=== PATIENT | male | born 1985 | race American Indian/Alaskan Native ===

== ENCOUNTER 2018-05-31 12:59 | Outpatient (CLI) | payer BC | END 2018-05-31 13:00 | disposition home or self-care (01) | LOC: RAD 12:59 ==

== ENCOUNTER 2018-06-16 13:04 | Outpatient (CLI) | payer BC | END 2018-06-16 13:05 | disposition home or self-care (01) | LOC: RAD 13:04 ==

== ENCOUNTER 2018-07-01 12:58 | Outpatient (CLI) | payer BC | END 2018-07-01 12:59 | disposition home or self-care (01) | LOC: RAD 12:58 ==

== ENCOUNTER 2018-08-17 17:16 | Emergency (ER) | payer BC ==
[2018-08-17 17:17] VITALS: BMI 27.6
[2018-08-17 18:22] VITALS: RESP 18
[2018-08-17] MEDS: Lidocaine 5% Patch TD STA (18:52)
--- NOTE | 2018-08-17 19:56 | ED PDOC ---
Arrival/HPI - General Chief Complaint: Back Pain Time Seen by Provider: 08/17/18 17:32 Historian: Patient - History of Present Illness Narrative History of Present Illness (Text): 20:03 33 y/o male with PMH of chronic back pain and herniated disks presents to the ED c/o right sided back pain x 2 days. Pain is sharp and radiates into right hip and down into right buttock/leg. States he has been doing a lot of stretches and exercises at home recently, as recommended by physical therapy. Has a physical therapy session scheduled for tomorrow. Pt had a Lumbar Spine MRI on 07/01/18 that showed herniated disc L5-S1 and severe right sided neural foraminal stenosis. Denies saddle anesthesia, bowel/bladder incontinence, extremity numbness/weakness/paresthesias, abdominal pain, rectal pain, testicular pain, nausea, vomiting, fever, chills, chest pain, SOB, headache, dizziness, or any other associated symptoms. PMD: Past Medical History - Provider Review Nursing Documentation Reviewed: Yes - Infectious Disease Hx of Infectious Diseases: None - Cardiac Hx Cardiac Disorders: No - Musculoskeletal/Rheumatological Hx Back Pain: Yes Hx Herniated Disk: Yes - Psychiatric Hx Substance Use: No - Anesthesia Hx Anesthesia: No Hx Anesthesia Reactions: No Hx Malignant Hyperthermia: No Family/Social History - Physician Review Nursing Documentation Reviewed: Yes Family/Social History: No Known Family HX Smoking Status: Current Some Days Smoker Hx Alcohol Use: No Hx Substance Use: No Allergies/Home Meds Allergies/Adverse Reactions: Allergies No Known Allergies Allergy (Verified 08/18/18 05:03) Review of Systems - Review of Systems Constitutional: Normal. absent: Fevers Respiratory: Normal. absent: SOB Cardiovascular: Normal. absent: Chest Pain Gastrointestinal: Normal. absent: Abdominal Pain, Stool Changes, Nausea, Vomiting, Other (no bowel/bladder incontinence) Genitourinary Male: Normal Musculoskeletal: Back Pain, Other (right leg pain) Skin: Normal. absent: Rash Neurological: Normal. absent: Headache, Dizziness, Other (no paresthesias, numbness, weakness) Physical Exam Vital Signs Temp Pulse Resp BP Pulse Ox 08/17/18 18:00 98 F 88 18 151/89 H 99 Temperature: Afebrile Blood Pressure: Hypertensive Pulse: Regular Respiratory Rate: Normal Appearance: Positive for: Well-Appearing, Non-Toxic, Comfortable Pain Distress: None Mental Status: Positive for: Alert and Oriented X 3 - Systems Exam Head: Present: Atraumatic, Normocephalic Pupils: Present: PERRL Extroacular Muscles: Present: EOMI Conjunctiva: Present: Normal Mouth: Present: Moist Mucous Membranes Neck: Present: Normal Range of Motion. No: Meningeal Signs Respiratory/Chest: Present: Clear to Auscultation, Good Air Exchange. No: Respiratory Distress, Accessory Muscle Use Cardiovascular: Present: Regular Rate and Rhythm, Normal S1, S2, Peripheal Pulses Present Abdomen: Present: Normal Bowel Sounds. No: Tenderness, Distention, Peritoneal Signs Back: Present: Normal Inspection, Paraspinal Tenderness (right lumbar), Pain with Leg Raise (right at 30 degrees). No: Midline Tenderness Upper Extremity: Present: Normal Inspection, Normal ROM. No: Cyanosis, Edema Lower Extremity: Present: Normal Inspection, NORMAL PULSES, Normal ROM, Neurovascularly Intact, Capillary Refill < 2 s. No: Edema, CALF TENDERNESS, Deformity, Temperature Abnormalties Neurological: Present: GCS=15, CN II-XII Intact, Speech Normal, Motor Func Grossly Intact, Normal Sensory Function Skin: Present: Warm, Dry, Normal Color. No: Rashes Psychiatric: Present: Alert, Oriented x 3, Normal Insight, Normal Concentration, Normal Affect, Normal Mood Medical Decision Making ED Course and Treatment: Initial Plan: * Toradol, Valium, Lidoderm Patch 19:54 Offered patient hip and SI joint XR, patient refuses. States he recently had MRI. On re-evaluation, patient reports improvement in pain but is still having difficulty ambulating. Percocet ordered. 21:09 Pt continues with mild pain but ambulating without difficulty. Offered admission for pain control but pt is requesting discharge home, states he would like to attempt outpatient management. Advised orthopedic and PMD followup. Dr. Murillo updated with disposition, states pt can followup in his office tomorrow. Encouraged return to ED for worsening symptoms. Diagnostic testing results and plan of care discussed with patient. Strict instructions given regarding prescription use, importance of followup, and signs/symptoms to return to ER including worsening pain, extremity numbness/weakness/paresthesias, saddle anesthesia, bowel/bladder incontinence, or any other new/worsening symptoms. Pt verbalized understanding of discussion. Patient is A&Ox3, ambulating with steady gait, with vital signs stable for discharge. - Medication Orders Current Medication Orders: Discontinued Medications Diazepam (Valium) 5 mg PO ONCE ONE; Protocol Stop: 08/17/18 18:10 Last Admin: 08/17/18 18:52 Dose: 5 mg Ketorolac Tromethamine (Toradol) 60 mg IM STAT STA Stop: 08/17/18 18:10 Last Admin: 08/17/18 18:52 Dose: 60 mg MAR Pain Assessment Document 08/17/18 18:52 [facility] (Rec: 08/17/18 18:52 [id number] Pain Reassessment Is this a pain reassessment? No Sleep Is patient sleeping during reassessment? No Presence of Pain Presence of Pain Yes IM Administration Charges Document 08/17/18 18:52 [facility] (Rec: 08/17/18 18:52 [id number] Charges for Administration # of IM Administrations 1 Lidocaine (Lidoderm) 1 ea TD DAILY LIANET Lidocaine (Lidoderm) 1 ea TD STAT STA Stop: 08/17/18 18:35 Last Admin: 08/17/18 18:52 Dose: 1 ea MAR Transdermal Patch Site Document 08/17/18 18:52 [facility] (Rec: 08/17/18 18:52 [id number] Transdermal Patch Site Transdermal Patch Site Left Lower Back Disposition/Present on Arrival - Present on Arrival Any Indicators Present on Arrival: No History of DVT/PE: No History of Uncontrolled Diabetes: No Urinary Catheter: No History of Decub. Ulcer: No History Surgical Site Infection Following: CABG - Mediastinitis, None - Disposition Have Diagnosis and Disposition been Completed?: Yes Diagnosis: Acute exacerbation of chronic low back pain Disposition: HOME/ ROUTINE Disposition Time: 21:10 Patient Plan: Discharge Patient Problems: Current Active Problems Problem Status Onset Lower back pain Acute Lumbar disc herniation with radiculopathy Acute Condition: IMPROVED Discharge Instructions (ExitCare): Sciatica, Low Back Pain in Adults, Sciatica Exercises Additional Instructions: Percocet every 6 hours for severe back pain Ibuprofen every 8 hours as needed for pain, take with food Flexeril nightly as needed, do not take before driving or working Followup with physical therapy tomorrow Followup with Dr. Murillo tomorrow Followup with orthopedics within 2 days Return to ER with any new/worsening symptoms Prescriptions: Cyclobenzaprine [Cyclobenzaprine HCl] 10 mg PO HS PRN #7 tab PRN Reason: Pain, Moderate (4-7) Ibuprofen [Motrin Tab] 600 mg PO Q8 PRN #30 tab PRN Reason: Pain, Moderate (4-7) oxyCODONE/Acetaminophen [Percocet 5/325 mg Tab] 1 tab PO Q6H PRN #10 tab PRN Reason: Pain, Severe (8-10) Referrals: Vicky Garner MD [Staff Provider] - Follow up with primary Yoel Murillo DO [Family Provider] - Follow up with primary Forms: [employer] (American), WORK NOTE, Opioid Discharge Information
[2018-08-17] MEDS: Oxycodone/Acetaminophen 5/325 mg Tab PO STA (20:19)
[2018-08-17 21:21] VITALS: BP 113/67; PULSE 66; TEMP 98.2; O2SAT 100
[2018-08-18] MEDS ORDERED: Lidocaine 5% Patch TD SCH (10:00)
== END 2018-08-17 21:21 | disposition home or self-care (01) ==
LOC: ED 17:16
DX: M54.5 Low back pain (principal); G89.29 Other chronic pain
CPT/HCPCS: 96372; 99282; J1885

== ENCOUNTER 2018-08-18 04:54 | Inpatient (IN) | payer BC ==
[2018-08-18 04:54] VITALS: BMI 27.6
[2018-08-18] MEDS ORDERED: Morphine 4 mg/ml ISec IM STA (05:38)
--- NOTE | 2018-08-18 05:41 | ED PDOC ---
Arrival/HPI - General Chief Complaint: Back Pain Time Seen by Provider: 08/18/18 04:54 Historian: Patient - History of Present Illness Narrative History of Present Illness (Text): 08/18/18 05:37 33 year old male, whose past medical history includes chronic back pain and herniated disks presents to the emergency department complaining of right sided back pain, for 2 days. Pain is sharp and radiates into right hip and down into right buttock/leg. Patient had a Lumbar Spine MRI on 07/01/18 that showed herniated disc L5-S1 and severe neural foramen stenosis. Patient was seen in the ER hours ago. Patient has returned stating pain is worse,unable to stand or ambulate. Denies saddle anesthesia, bowel/bladder incontinence, extremity numbness/weakness/paresthesias, abdominal pain, rectal pain, testicular pain, nausea, vomiting, fever, chills, chest pain, SOB, headache, dizziness, or any other associated symptoms. PMD: Time/Duration: Prior to Arrival Symptom Onset: Gradual Symptom Course: Unchanged Activities at Onset: Light Context: Home Past Medical History - Provider Review Nursing Documentation Reviewed: Yes - Infectious Disease Hx of Infectious Diseases: None - Cardiac Hx Cardiac Disorders: No - Musculoskeletal/Rheumatological Hx Musculoskeletal Disorders: Yes Hx Back Pain: Yes Hx Herniated Disk: Yes - Gastrointestinal Hx Gastrointestinal Disorders: No - Psychiatric Hx Substance Use: No - Anesthesia Hx Anesthesia: No Hx Anesthesia Reactions: No Hx Malignant Hyperthermia: No Family/Social History - Physician Review Nursing Documentation Reviewed: Yes Family/Social History: No Known Family HX Smoking Status: Current Some Days Smoker Hx Alcohol Use: No Hx Substance Use: No Allergies/Home Meds Allergies/Adverse Reactions: Allergies No Known Allergies Allergy (Verified 08/18/18 05:03) Review of Systems - Physician Review All systems were reviewed & negative as marked: Yes - Review of Systems Constitutional: absent: Fevers, Night Sweats Respiratory: absent: SOB, Cough Cardiovascular: absent: Chest Pain Gastrointestinal: absent: Abdominal Pain, Diarrhea, Nausea, Vomiting Musculoskeletal: Back Pain Neurological: Normal. absent: Headache, Dizziness, Focal Weakness, Other (no parathesia or saddle anesthesia) Physical Exam Vital Signs Reviewed: Yes Vital Signs Temp Pulse Resp BP Pulse Ox 08/18/18 05:02 97.7 F 74 18 127/98 H 100 Temperature: Afebrile Blood Pressure: Normal Pulse: Regular Respiratory Rate: Normal Appearance: Positive for: Well-Appearing, Non-Toxic, Comfortable Pain Distress: None Mental Status: Positive for: Alert and Oriented X 3 - Systems Exam Head: Present: Atraumatic, Normocephalic Pupils: Present: PERRL Extroacular Muscles: Present: EOMI Conjunctiva: Present: Normal Mouth: Present: Moist Mucous Membranes Neck: Present: Normal Range of Motion Respiratory/Chest: Present: Clear to Auscultation, Good Air Exchange. No: Respiratory Distress, Accessory Muscle Use Cardiovascular: Present: Regular Rate and Rhythm, Normal S1, S2. No: Murmurs Abdomen: No: Tenderness, Distention, Peritoneal Signs Back: Present: Paraspinal Tenderness, Pain with Leg Raise (severe pain with any attempt at SLR) Upper Extremity: Present: Normal Inspection. No: Cyanosis, Edema Lower Extremity: Present: Normal Inspection, Neurovascularly Intact. No: Edema Neurological: Present: GCS=15, CN II-XII Intact, Speech Normal, Motor Func Grossly Intact, Normal Sensory Function Skin: Present: Warm, Dry, Normal Color. No: Rashes Psychiatric: Present: Alert, Oriented x 3, Normal Insight, Normal Concentration Medical Decision Making ED Course and Treatment: 08/18/18 05:44 Impression: 33 year old male presents with back pain. Plan: -- Morphine -- Toradol -- Reassess and disposition Prior Visits: Notes and results from previous visits were reviewed. Progress Notes: 08/18/18 07:00 Case endorsed to /pending MRI/response to treatment/reassess/final disposition - Scribe Statement The provider has reviewed the documentation as recorded by the Emily Tripathi Provider Scribe Attestation: All medical record entries made by the Scribe were at my direction and personally dictated by me. I have reviewed the chart and agree that the record accurately reflects my personal performance of the history, physical exam, medical decision making, and the department course for this patient. I have also personally directed, reviewed, and agree with the discharge instructions and disposition. Disposition/Present on Arrival - Present on Arrival Any Indicators Present on Arrival: No History of DVT/PE: No History of Uncontrolled Diabetes: No Urinary Catheter: No History of Decub. Ulcer: No History Surgical Site Infection Following: CABG - Mediastinitis, None - Disposition Have Diagnosis and Disposition been Completed?: No Diagnosis: Lower back pain Disposition Time: 07:00 Condition: STABLE Forms: [employer] (Algerian)
[2018-08-18] MEDS ORDERED: Lidocaine 5% Patch TD ONE (06:38)
--- NOTE | 2018-08-18 07:09 | ED PDOC ---
Physical Exam - Physical Exam Narrative Physical Exam (Text): 08/18/18 07:13 Patient was seen in the emergency department yesterday by the PA and discharged home with ibuprofen Percocet and Flexeril. These have not been helping him. He is unable to ambulate. MRI is currently pending, though he just had an MRI of his lumbosacral spine last month. Arrangements will be made for admission and orthopedic consult. He has no sciatic notch tenderness on exam. 08/18/18 07:[address] Murillo who requests orthopedic consult and the patient be placed on regular observation. 08/18/18 07:50 Patient was seen and examined in the emergency department by Dr. Murillo. Vital Signs Reviewed: Yes Vital Signs Temp Pulse Resp BP Pulse Ox 08/18/18 05:02 97.7 F 74 18 127/98 H 100 Temperature: Afebrile Blood Pressure: Hypertensive Pulse: Regular Respiratory Rate: Normal Appearance: Positive for: Well-Appearing, Non-Toxic, Comfortable Pain Distress: None Mental Status: Positive for: Alert and Oriented X 3 Medical Decision Making ED Course and Treatment: 08/18/18 07:08: Case endorsed to me by Dr. Westbrook. Pending MRI, reassessment, and final disposition. - RAD Interpretation Radiology Orders: 08/18/18 06:38 SPINAL CANAL LUMBAR W/O CONT [MRI] Stat - Medication Orders Current Medication Orders: Discontinued Medications Diazepam (Valium) 5 mg PO ONCE ONE; Protocol Stop: 08/18/18 06:38 Ketorolac Tromethamine (Toradol) 60 mg IM ONCE ONE Stop: 08/18/18 05:39 Last Admin: 08/18/18 05:47 Dose: 60 mg MAR Pain Assessment Document 08/18/18 05:47 (Rec: 08/18/18 05:48 [id number]) Pain Reassessment Is this a pain reassessment? Yes Location Left, Right or Bilateral Right Upper or Lower Lower Pain Location Body Site Back Description Description Radiating IM Administration Charges Document 08/18/18 05:47 (Rec: 08/18/18 05:48 [id number]) Injection Site MAR Injection Site Left Vastus Lateralis Charges for Administration # of IM Administrations 1 Lidocaine (Lidoderm) 1 ea TD ONCE ONE Stop: 08/18/18 06:39 Morphine Sulfate (Morphine) 4 mg IM STAT STA Stop: 08/18/18 05:39 Last Admin: 08/18/18 05:48 Dose: 4 mg MAR Pain Assessment Document 08/18/18 05:48 (Rec: 08/18/18 05:48 [id number]) Pain Reassessment Is this a pain reassessment? Yes Location Left, Right or Bilateral Right Upper or Lower Lower Pain Location Body Site Back Description Description Radiating IM Administration Charges Document 08/18/18 05:48 (Rec: 08/18/18 05:48 RG [id number]) Injection Site MAR Injection Site Right Vastus Lateralis Charges for Administration # of IM Administrations 1 - Scribe Statement The provider has reviewed the documentation as recorded by the Allyssaibe Teena Chavarria Provider Scribe Attestation: All medical record entries made by the Scribe were at my direction and personally dictated by me. I have reviewed the chart and agree that the record accurately reflects my personal performance of the history, physical exam, medical decision making, and the department course for this patient. I have also personally directed, reviewed, and agree with the discharge instructions and disposition. Disposition/Present on Arrival - Present on Arrival Any Indicators Present on Arrival: No History of DVT/PE: No History of Uncontrolled Diabetes: No Urinary Catheter: No History of Decub. Ulcer: No History Surgical Site Infection Following: CABG - Mediastinitis, None - Disposition Have Diagnosis and Disposition been Completed?: Yes Diagnosis: Lower back pain Disposition: HOSPITALIZED Disposition Time: 07:21 Patient Plan: Observation Patient Problems: Current Active Problems Problem Status Onset Lower back pain Acute Condition: GOOD
[2018-08-18 09:47] LABS: ALB/GLOB RATIO 1.3 (1.1-1.8); ALBUMIN 4.2 g/dL (3.0-4.8); ALT/SGPT 36 U/L (7-56); AST/SGOT 31 U/L (17-59); BLOOD UREA NITROGEN 15 mg/dL (7-21); CALCIUM 9.1 mg/dL (8.4-10.5); GFR NON-AFRICAN AMERICAN > 60
[2018-08-18] MEDS: Morphine 2 mg/ml ISec IVP PRN ×3 (09:59→20:09)
[2018-08-18] MEDS: Lidocaine 5% Patch TD SCH (10:00)
--- NOTE | 2018-08-18 12:47 | HP ---
DATE OF EXAM: 08/18/2018 HISTORY OF PRESENT ILLNESS: I have known him in the office. He does work with a very weird position and I think he had a very bad low back pain on the outpatient MRI and he could not go back to work. He has been getting physical therapy and multiple pain medications on the outpatient. He comes in last night with severe back pain. He could not stand or walk. He was given some medications and sent home. It lasted maybe 4 to 6 hours, he is back in the ER. He cannot walk, he cannot stand. He has excruciating back pain. He is a 33-year-old man which he is now having a chronic back with herniated discs, a right-sided back pain for 2 days that radiates into his hip and down to his buttocks. On the 07/01/2018, an MRI showed herniated disc at L5-S1, severe neuroforaminal stenosis. He was in the ER a couple of times over the past 24 hours and now he is being kept in a very vigorous work job issue with back pain from it, herniated disc. FAMILY HISTORY: No known family history. SOCIAL HISTORY: An occasional smoker. No alcohol. No drugs. ALLERGIES: NO KNOWN DRUG ALLERGIES. MEDICATIONS: He was on Naprosyn and Flexeril patches. REVIEW OF SYSTEMS: He was in a lot of pain. No fever. No night sweats. No shortness of breath or cough. No chest pain or palpitations. No abdominal pain, nausea, vomiting, constipation, or diarrhea. Severe low back pain into his leg, he cannot walk at this time. No headache. No dizziness. No focal headache. PHYSICAL EXAMINATION GENERAL: He is well-appearing, comfortable now that he is medicated but before he was not doing well and in pain. Alert and oriented x3. VITAL SIGNS: He has a 97.7 temperature, 74 pulse, 127/98, it came down to 138/78 blood pressure, 15 respiratory rate and 96% O2 sat. HEENT: Head; atraumatic, normocephalic. Extraocular muscles are intact. Pupils reactive to light and accommodation. Throat is moist. NECK: Supple. HEART: Regular rate. Normal S1, S2. LUNGS: Decreased breath sounds but clear to auscultation. No wheezes, no rhonchi, no rales. ABDOMEN: Soft, nontender. Positive bowel sounds. No guarding, no rebound or CVA tenderness. BACK: Paraspinal tenderness pain with leg raise, severe with any attempted single leg raising. No edema. SKIN: Warm and dry that I could tell. No ulcers or rashes appreciated. NEUROLOGIC: Cranial nerves II through XII grossly intact. Speech is normal. Alert and oriented x3. ASSESSMENT AND PLAN: He could not walk to get out of the emergency room. He is here in the hospital for evaluation. I have called in Orthopedic and Physical Therapy. I have put him on pain medications, the patch. We will see what Orthopedics have to do to help the patient. He might need to have an epidural, we will see. I will call Neurology in too to get their opinion and hopefully he will not be in longer than 24 hours in observation for a severe low back pain, he cannot walk. Yoel Murillo DO
--- NOTE | 2018-08-18 12:52 | MRI ---
Date of service: 08/18/2018 PROCEDURE: MR LUMBAR SPINE WITHOUT CONTRAST HISTORY: sever pain/inability to ambulate COMPARISON: 07/01/2018. TECHNIQUE: Multiecho multiplanar sequences were performed through the lumbar spine without the use of intravenous contrast. FINDINGS: There is normal alignment of the lumbar vertebral bodies. There is straightening of the sella bar spine with loss of lumbar lordosis. Vertebral height is normal. There is no acute fracture, spondylolysis or spondylolisthesis. Bone marrow signal is within normal limits. The conus medullaris terminates at a normal level and the nerve roots of cauda equina are normal. The paraspinous soft tissues are normal. Imaged portion of the retroperitoneum is within normal limits. T12-L1: No disc herniation, spinal canal stenosis or neural foraminal narrowing. L1-2: No disc herniation, spinal canal stenosis or neural foraminal narrowing. L2-3: No disc herniation, spinal canal stenosis or neural foraminal narrowing. L3-4: Mild posterior disc bulge without spinal canal stenosis or neural foraminal narrowing. Mild bilateral facet arthropathy. L4-5: Diffuse posterior disc bulge indents the ventral thecal sac without spinal canal stenosis. Mild bilateral facet arthropathy contributes to mild neural foraminal narrowing. L5-S1: There is interval worsening of right paracentral and posterolateral disc protrusion which indents the ventral thecal sac and posteriorly displaces traversing right S1 nerve. No central spinal canal stenosis. Also noted is a large right foraminal and far lateral disc protrusion which impinge on the exiting right L5 nerve root. Moderate bilateral facet arthropathy contribute to severe right and moderate left neural foraminal narrowing. OTHER FINDINGS: None. IMPRESSION: Interval mild progression of degenerative disc disease at L5-S1 with a large right paracentral and posterolateral disc protrusion which indents the ventral thecal sac and posteriorly displaces the traversing right S1 nerve root. Also noted is large right foraminal and far lateral disc protrusion which impinge on the exiting right L5 nerve root. No central spinal canal stenosis. Moderate bilateral facet arthropathy contribute to severe right and moderate left neural foraminal narrowing.
--- NOTE | 2018-08-18 14:26 | CP.PCM.CON ---
History of Present Illness - History of Present Illness History of Present Illness: Orthopedic consult: Dr. Garner Patient is a 33 y/o healthy male who presents c/o severe right sided lower back pain. The pain began approximately 4 months ago without any instance of injury or trauma. The patient presented to Dr. Murillo with these symptoms and pain gradually improved over the next two months with home exercises and 2 sessions of physical therapy. Over the last two days, the pain acutely worsened after initiating dipping exercises at home. He [place] [facility] [place]. Currently, his pain is sharp, constant and located at the right lower back. He rates the pain a 10/10, although improved since being admitted. The pain radiates to his right hip, groin and calf. He denies any numbness/tin gling/bowel or bladder incontinence or saddle paresthesias. He also denies any CP/SOB/N/V/D/fever/dysuria/melena. 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 PMH: denies PSH: umbilical hernia repair as child meds: denies NKDA SH: tobacco 1/2 ppd x 13 yrs, ETOH occasionally, denies drug use Review of Systems - Review of Systems All systems: reviewed and no additional remarkable complaints except Review of Systems: as per HPI Past Patient History - Infectious Disease Hx of Infectious Diseases: None - Past Medical History & Family History Past Family History: Reviewed and not pertinent - Past Social History Smoking Status: Heavy Smoker > 10 Cigarettes Daily - CARDIAC Hx Cardiac Disorders: No - PULMONARY Hx Respiratory Disorders: No - NEUROLOGICAL Hx Neurological Disorder: No - HEENT Hx HEENT Problems: No - RENAL Hx Chronic Kidney Disease: No - ENDOCRINE/METABOLIC Hx Endocrine Disorders: No - HEMATOLOGICAL/ONCOLOGICAL Hx Blood Disorders: No - INTEGUMENTARY Hx Dermatological Problems: No - MUSCULOSKELETAL/RHEUMATOLOGICAL Hx Musculoskeletal Disorders: Yes Hx Back Pain: Yes Hx Falls: No Hx Herniated Disk: Yes - GASTROINTESTINAL Hx Gastrointestinal Disorders: No - GENITOURINARY/GYNECOLOGICAL Hx Genitourinary Disorders: No - PSYCHIATRIC Hx Psychophysiologic Disorder: No Hx Substance Use: No - SURGICAL HISTORY Hx Surgeries: Yes Other/Comment: Hernia repair 5-6 yrs ago - ANESTHESIA Hx Anesthesia: No Hx Anesthesia Reactions: No Hx Malignant Hyperthermia: No Meds Allergies/Adverse Reactions: Allergies Allergy/AdvReac Type Severity Reaction Status Date / Time No Known Allergies Allergy Verified 08/18/18 05:03 - Medications Medications: Current Medications Cyclobenzaprine HCl (Flexeril) 10 mg PO TID [facility] Last Admin: 08/18/18 09:59 Dose: 10 mg Ketorolac Tromethamine (Toradol) 30 mg IVP Q6H PRN PRN Reason: Pain, Mild (1-3) Lidocaine (Lidoderm) 1 ea TD DAILY [facility] Last Admin: 08/18/18 10:00 Dose: Not Given Methylprednisolone (Medrol) 24 mg PO DAILY [facility]; Taper Stop: 08/23/18 09:44 Morphine Sulfate (Morphine) 2 mg IVP Q3H PRN PRN Reason: Pain, moderate (4-7) Last Admin: 08/18/18 09:59 Dose: 2 mg Physical Exam - Constitutional Appears: Well, No Acute Distress - Head Exam Head Exam: ATRAUMATIC, NORMOCEPHALIC - Eye Exam Eye Exam: EOMI, Normal appearance - ENT Exam ENT Exam: Mucous Membranes Moist - Neck Exam Neck exam: Positive for: Normal Inspection - Respiratory Exam Respiratory Exam: NORMAL BREATHING PATTERN - Extremities Exam Extremities exam: Positive for: normal inspection - Back Exam Back exam: muscle spasm (right), paraspinal tenderness (right). absent: vertebral tenderness Additional comments: no lesions/masses/erythema + SLR b/l neg clonus - Neurological Exam Neurological exam: Alert, CN II-XII Intact, Oriented x3 - Expanded Neurological Exam Expanded Neuro motor strength exam: Left Upper Extremity: 5, Right Upper Extremity: 5, Left Lower Extremity: 4 (2nd to pain), Right Lower Extremity: 4 (2nd to pain) - Psychiatric Exam Psychiatric exam: Normal Affect, Normal Mood - Skin Skin Exam: Normal Color, Warm Results - Vital Signs Recent Vital Signs: Last Vital Signs Temp 97.7 F 08/18/18 05:02 Pulse 65 08/18/18 12:02 Resp 14 08/18/18 12:02 BP 138/78 08/18/18 07:36 Pulse Ox 96 08/18/18 07:36 - Labs Result Diagrams: 08/18/18 09:15 Labs: Laboratory Results - last 24 hr 08/18/18 09:15 Sodium 140 Potassium 4.1 Chloride 105 Carbon Dioxide 26 Anion Gap 13 BUN 15 Creatinine 0.9 Est GFR ( Amer) > 60 Est GFR (Non-Af Amer) > 60 Random Glucose 96 Calcium 9.1 Total Bilirubin 0.5 AST 31 ALT 36 Alkaline Phosphatase 79 Total Protein 7.6 Albumin 4.2 Globulin 3.4 Albumin/Globulin Ratio 1.3 - Impressions Impression: Accession No. : [id number] Patient Name / ID : LEVAR BOO / [id number] Exam Date : 08/18/2018 10:35:07 ( Approved ) Study Comment : Sex / Age : M / 33Y Creator : Gayle Thomas MD Dictator : Gayle Thomas MD Terrazzo Mechanic Helper : Bioinformatics Programmer : Gayle Thomas MD Approver2 : Report Date : 08/18/2018 12:49:07 My Comment : Date of service: 08/18/2018 PROCEDURE: MR LUMBAR SPINE WITHOUT CONTRAST HISTORY: sever pain/inability to ambulate COMPARISON: 07/01/2018. TECHNIQUE: Multiecho multiplanar sequences were performed through the lumbar spine without the use of intravenous contrast. FINDINGS: There is normal alignment of the lumbar vertebral bodies. There is straightening of the sella bar spine with loss of lumbar lordosis. Vertebral height is normal. There is no acute fracture, spondylolysis or spondylolisthesis. Bone marrow signal is within normal limits. The conus medullaris terminates at a normal level and the nerve roots of cauda equina are normal. The paraspinous soft tissues are normal. Imaged portion of the retroperitoneum is within normal limits. T12-L1: No disc herniation, spinal canal stenosis or neural foraminal narrowing. L1-2: No disc herniation, spinal canal stenosis or neural foraminal narrowing. L2-3: No disc herniation, spinal canal stenosis or neural foraminal narrowing. L3-4: Mild posterior disc bulge without spinal canal stenosis or neural foraminal narrowing. Mild bilateral facet arthropathy. L4-5: Diffuse posterior disc bulge indents the ventral thecal sac without spinal canal stenosis. Mild bilateral facet arthropathy contributes to mild neural foraminal narrowing. L5-S1: There is interval worsening of right paracentral and posterolateral disc protrusion which indents the ventral thecal sac and posteriorly displaces traversing right S1 nerve. No central spinal canal stenosis. Also noted is a large right foraminal and far lateral disc protrusion which impinge on the exiting right L5 nerve root. Moderate bilateral facet arthropathy contribute to severe right and moderate left neural foraminal narrowing. OTHER FINDINGS: None. IMPRESSION: Interval mild progression of degenerative disc disease at L5-S1 with a large right paracentral and posterolateral disc protrusion which indents the ventral thecal sac and posteriorly displaces the traversing right S1 nerve root. Also noted is large right foraminal and far lateral disc protrusion which impinge on the exiting right L5 nerve root. No central spinal canal stenosis. Moderate bilateral facet arthropathy contribute to severe right and moderate left neural foraminal narrowing. Assessment & Plan (1) Lumbar disc herniation with radiculopathy Assessment and Plan: L5-S1 right disc protrusion and severe foraminal stenosis causing R sided radiculopathy, R paraspinal spasm -No acute orthopedic intervention needed at this time -Recommend conservative management -Pain control with anti-inflammatories and muscle relaxants. Narcotics prn -PT/OT vonda lumbar extension exercises -Follow up in Dr. Garner's office in 7-10 days after discharged -consult appreciated -please reconsult as needed -Discussed with Dr. Garner who agrees with above Status: Acute - Date & Time Date: 08/18/18 Time: 14:30
--- NOTE | 2018-08-18 15:33 | CON ---
DATE: 08/18/2018 NEURO PHYSICIAN COMMUNICATION NOTE HISTORY OF PRESENT ILLNESS: MRI of the lumbosacral spine was done and it showed a ventral mild progression of degenerative disk disease at L5-S1 with large right paracentral and posterolateral disk protrusion, which is indenting the ventral thecal sac posteriorly, transverse in the right S1 nerve root. There is also noted a large right foraminal infarct disk lateral protrusion impinging in the exiting right L5 nerve root. There is no evidence of central spinal canal stenosis. There is moderate bilateral facet arthropathy contributing to severe right and moderate left neural foraminal narrowing. The patient has intractable back pain. RECOMMENDATIONS: We will recommend: 1. Pain management consult staff for an epidural injection which will reduce the intensity of pain. 2. Lidoderm patch 1 daily. 3. Medrol Dosepak to decrease the intensity of the nerves. 4. Toradol 30 mg IV every 6 hours. 5. Neurosurgery evaluation for large right paracentral posterolateral disk protrusion indenting the ventral thecal sac. 6. The patient will benefit from physical therapy as an outpatient for lumbosacral stretching, therapeutic exercise, TENS unit, ultrasound therapy. Artemio Vaughn MD
--- NOTE | 2018-08-18 22:21 | CON ---
DATE: 08/18/2018 HISTORY OF PRESENT ILLNESS: This is a 33-year-old black male with past medical history of low back pain and came to hospital with a bad back pain. MRI as outpatient was done which showed L5-S1 neuroforaminal stenosis. He was in the emergency room and came back again because of low back pain. ALLERGIES: NO KNOWN DRUG ALLERGIES. REVIEW OF SYSTEMS: A 10-point review of system was negative. PHYSICAL EXAMINATION: VITAL SIGNS: Blood pressure 138/78. HEENT: Normocephalic and atraumatic. NECK: Supple. NEUROLOGIC: Alert, awake, and oriented x3. No aphasia. Cranial nerves II through XII are tested. Pupil reactive. EOM intact. Visual field full. No facial asymmetry. Tongue midline. Motor examination, moves all extremities equally. Deep tendon reflexes 1+. Both plantars are downgoing. Sensory appears intact. Cerebellar gait deferred. IMPRESSION: Low back pain and old MRI shows L5-S1, neuroforaminal stenosis and repeat MRI in the hospital negative for herniated disc disease. I recommend the patient physical therapy for gait training and we will give Medrol Dosepak . Irvin Vaughn MD
[2018-08-19] MEDS: Morphine 2 mg/ml ISec IVP PRN ×5 (00:28→20:42)
[2018-08-19 06:48] LABS: HEMOGLOBIN 14.6 g/dL (14.0-18.0); MEAN CELL VOLUME 84.9 fl (80.0-105.0); MEAN CORPUSCULAR HEMOGLOBIN 27.2 pg (25.0-35.0); MEAN CORPUSCULAR HGB CONC 32.1 g/dl (31.0-37.0); MEAN PLATELET VOLUME 9.4 fl (7.0-11.0); RBC 5.36 10^6/uL (3.5-6.1); RED CELL DISTRIBUTION WIDTH 13.8 % (11.5-14.5); WHITE BLOOD COUNT 10.8 10^3/uL (4.5-11.0)
[2018-08-19 07:25] LABS: ALB/GLOB RATIO 1.3 (1.1-1.8); ALBUMIN 4.3 g/dL (3.0-4.8); ALT/SGPT 25 U/L (7-56); AST/SGOT 32 U/L (17-59); BLOOD UREA NITROGEN 15 mg/dL (7-21); CALCIUM 9.2 mg/dL (8.4-10.5); GFR NON-AFRICAN AMERICAN > 60
[2018-08-19] MEDS: Lidocaine 5% Patch TD SCH (09:25)
--- NOTE | 2018-08-19 18:29 | CON ---
DATE: 08/19/2018 LOCATION: 561, bed 1. PRIMARY CARE PHYSICIAN: Yoel Murillo DO. REASON FOR CONSULT: Low back pain that radiates down to right lower extremity. HISTORY OF PRESENT ILLNESS: Mr. Blue is a pleasant 33-year-old male, who was admitted to [facility] with worsening right-sided low back pain that radiates down to right lower extremity. The patient stated that he has been complaining of low back pain on and off for the past four months and has been getting progressively worse over time to the point that a few days ago he could not even put weight on his right lower extremity, and every time he tried to bear weight on right lower extremity, he feels an electrical shock. The patient stated that he had an MRI done on 06/2018 because of back pain, and he had a recent MRI done as of yesterday, 08/18/2018 that showed worsening of right paracentral disc herniation L5-S1 that is impinging on right L5 and S1 nerve roots. His right-sided low back pain radiates down to right lower extremity down to his calf and foot associated with tingling and numbness to the right lower extremity. The patient stated that his pain is relieved by lying down on his stomach; otherwise, the pain is aggravated. He denied any new weakness. He denied any bowel or bladder dysfunction. PAST MEDICAL HISTORY: Unremarkable. PAST SURGICAL HISTORY: Hernia repair. HOME MEDICATIONS: None. ALLERGIES: NO KNOWN DRUG ALLERGIES. SOCIAL HISTORY: He smokes half a pack per day for the past 13 years. EtOH occasionally. Denies any IV drug use. REVIEW OF SYSTEMS: A 14-point review of systems was negative except what is mentioned in history of present illness. PHYSICAL EXAMINATION: GENERAL: The patient is lying in bed, in mild distress on his stomach. VITAL SIGNS: He is afebrile. Vital signs stable. HEENT: Head is normocephalic and atraumatic. CARDIOVASCULAR: S1 and S2 is normal. ABDOMEN: Soft, nontender, and nondistended. NEUROMUSCULAR: He is alert, awake, and oriented x3, concentrates very well. Cranial nerves II through XII grossly intact. Coordination is grossly intact. There is tenderness over right lumbar paraspinal and right sciatic notch. Straight leg raising test is positive at 30 degrees on the right side. Sensation to light touch is impaired on right L5 and S1 dermatome. Gait was not tested as he stated that the pain is so severe he cannot put weight on his right lower extremity. RADIOLOGIC STUDIES: MRI of lumbar spine performed on 08/18/2018 showed L3-L4 mild disc bulge, L4-L5 diffuse posterior disc bulge and tender on the ventral thecal sac L5-S1. There is interval worsening of right paracentral and posterolateral disc protrusion that intend on and displays the traversing right S1 dermatome. Also there is a large right foraminal and far lateral disc protrusion impinge on exiting right L5 nerve root. IMPRESSION: 1. Low back pain. 2. Lumbar disc herniation, L5-S1 with right lumbar radiculopathy. RECOMMENDATIONS: Discussed with the patient different treatment options that he might benefit from including medication and physical therapy, and he stated that he is in so much pain to participate in physical therapy at this point. Also discussed with the patient that at this point to be able to relieve his pain, we will consider right L5 and S1 transforaminal epidural steroid injection (selective nerve root block), and the patient agreed with that. Also discussed with the patient that if no relief with the above measure, we will consider a neurosurgical evaluation with consideration of microdiscectomy to release any chemical pressure of the nerve. Andres Almazan MD cc: Yoel Murillo DO; Artemio Vaughn MD.
--- NOTE | 2018-08-20 00:16 | DS ---
HISTORY OF PRESENT ILLNESS: He has a bad low back on MRI with nerve being impinged and he is having lots of pain, he tells me he cannot walk, I asked physical therapy to come in to see what he can do that he need RADHA, TCU or can he go home with services. MEDICATIONS: He is currently on Flexeril, Lidoderm, Medrol Dosepak at 24 mg, morphine, Neurontin, Toradol, and Valium. He is having a lot of problems of his low back, he is very uncomfortable, he cannot walk, he tells me the bed in 24 hours. PHYSICAL EXAMINATION: VITAL SIGNS: 97.5 temperature, 65 pulse, 115/72 blood pressure, 20 respiratory rate, 90% O2 sat on room air. GENERAL: He is urinating in bed, he has not go to the bathroom yet. HEENT: Head is atraumatic and normocephalic. HEART: Regular rate. LUNGS: Decreased breath sounds. BACK: He is lying on his tummy because he cannot lay on his back. He states his legs are numb and weak and painful in the low back. LABORATORY DATA: He has a 10.8 white count, 14.6 hemoglobin, 45.5 hematocrit with 230 platelets. Sodium 139, potassium 4.7, BUN 15, creatinine 0.8, GFR is greater than 60, sugar is 104, calcium is 9.2, and total bili is 0.4. AST is 32, ALT is 25, alk phos is 70, and total protein is 7.7. ASSESSMENT AND PLAN: He is being seen by Neurology. We started him on the Medrol Dosepak. His recommendation for possible epidural and even neurosurgical evaluation if that fails. He has interval mild progression of degeneration disk of L5-S1 with a large right paracentral and posterolateral disk protrusion, which indents the ventral thecal sac and posteriorly displaced of the traversing right S1 nerve root, also noted is a large right foraminal and far lateral disk protrusion, which impinges on the exiting right L5 nerve root. No central spinal stenosis, moderate bilateral facet arthropathy. So, he has a couple of things touching the nerves on the right side. Hopefully, the Medrol will help. If I can discharge him later today, I will order physical therapy if he has been okay; otherwise, might need Subacute Rehab, Transitional Care Unit, and then eventually possibly epidural neurosurgery if we can get him stabilized. He is in a lot of pain in his low back, at this time he tells me cannot walk. Yoel Murillo DO MTDAntonio
[2018-08-20] MEDS: Morphine 2 mg/ml ISec IVP PRN ×6 (02:26→23:21)
[2018-08-20] MEDS: Lidocaine 5% Patch TD SCH (09:57)
--- NOTE | 2018-08-20 10:50 | PN ---
DATE: 08/20/2018 SUBJECTIVE: He is uncomfortable. He cannot walk. He is in physical therapy. He is in too much pain. The plan is to do a block with Pain Management. I also spoke to Dr. Grant, the neurosurgeon, who did not know about the consult, they missed it, so, he will do it. He is seeing him today. He is going to offer him surgery on Thursday. So, he might not do the block. He might be here till Thursday for a possible diskectomy or fusion, not sure. He is currently on Flexeril, Lidoderm, methylprednisolone, morphine, Neurontin, and Toradol. The patient still cannot walk or move. LABORATORY DATA: He has 139 sodium, potassium 4.7, BUN 15, creatinine 0.8, GFR is greater than 60, sugar is 104, calcium is 9.2. AST is 32, ALT is 25, alk phos is 70, total protein is 7.7. White count 10.8, 14.6 hemoglobin, 45.5 hematocrit with 230 platelets. ASSESSMENT AND PLAN: He might have a block today or he might go for surgery on Thursday and I will make him an inpatient if they go on Thursday. Otherwise, I will discharge him later today if he just gets the block and he could walk. I am not sure where we are heading, but he might have surgery on Thursday with Neurosurgery. I will find out in the next hour. Yoel Murillo DO
--- NOTE | 2018-08-20 14:24 | CP.PCM.PCO ---
Physician Communication Note - Physician Communication Note Physician Communication Note: LS radiculopathy, c/w neurosurg eval, pain management and PT.
[2018-08-21] MEDS: Morphine 2 mg/ml ISec IVP PRN (02:24)
[2018-08-21 04:33] LABS: URINE BILIRUBIN NEGATIVE (NEGATIVE); URINE BLOOD NEGATIVE (NEGATIVE); URINE GLUCOSE (UA) NEGATIVE (NEGATIVE); URINE LEUKOCYTE ESTERASE NEGATIVE Leu/uL (NEGATIVE); URINE PROTEIN NEGATIVE mg/dL (<30 mg/dL); URINE UROBILINOGEN 0.2 E.U./dL (<1 E.U./dL)
[2018-08-21 04:34] LABS: URINE APPEARANCE CLEAR (CLEAR); URINE COLOR YELLOW (YELLOW)
[2018-08-21 07:18] LABS: INR 1.27; PARTIAL THROMBOPLASTIN TIME 31.2 Seconds (26.9-38.3); PROTHROMBIN TIME 14.4 SECONDS (9.4-12.5)
[2018-08-21] MEDS ORDERED: Thrombin Topical 20,000 Intl Units Spray Kit TOP ONE (07:55)
[2018-08-21] MEDS ORDERED: Absorbable Gelatin Sponge Size 12-7 ONE (07:55)
[2018-08-21] MEDS ORDERED: Lidocaine 1% w Epi 1:100,000 Inj ONE (07:55)
[2018-08-21] MEDS ORDERED: Bupivacaine 0.5% 50 ML IJ ONE (07:55)
[2018-08-21] MEDS ORDERED: Propofol 10 mg/ml Inj (20 ML) ONE ×2 (08:38→08:55)
[2018-08-21] MEDS ORDERED: Midazolam 2 MG/2 ML VIAL ONE (08:38)
[2018-08-21] MEDS ORDERED: Succinylcholine 200 mg/10 ml Inj IV ONE (08:54)
[2018-08-21] MEDS ORDERED: Rocuronium 10 mg/ml (5 ml) ONE (08:56)
[2018-08-21] MEDS ORDERED: Remifentanil 2 MG PDS IV ONE (09:04)
[2018-08-21] MEDS ORDERED: CeFAZolin 1 gm in NS 100ml IVPB ONE (09:15)
[2018-08-21] MEDS ORDERED: Lidocaine 1% w Epi 1:100,000 Inj IJ ONE (09:24)
[2018-08-21] MEDS: Lidocaine 5% Patch TD SCH (10:00)
[2018-08-21] MEDS ORDERED: Bupivacaine 0.5% Inj(30mL) IJ ONE (10:20)
[2018-08-21] MEDS ORDERED: HYDROmorphone 0.5 mg/0.5 ml ISec IVP PRN (10:39)
[2018-08-21] MEDS ORDERED: Lactated Ringer's 1,000 ML IV SCH (10:45)
[2018-08-21] MEDS ORDERED: Potassium Ch 20mEq in D5-1/2NS 1,000 ML IV SCH (10:49)
[2018-08-21] MEDS ORDERED: Oxycodone/Acetaminophen 5/325 mg Tab PO PRN (10:49)
[2018-08-21 10:54] VITALS: TEMP 98.4; O2SAT 99
[2018-08-21 10:57] VITALS: RESP 18
[2018-08-21 11:11] VITALS: BP 145/85; PULSE 96
--- NOTE | 2018-08-21 16:51 | PN ---
DATE: 08/21/2018 SUBJECTIVE: He came in but he could not walk due to severe low back pain. He had multiple treatments on the outpatient from physical therapy to medications, and he ended up not being able to walk. He had 2 to 3 visits this week, could not take it at home. He ended up having a L5-S1 diskectomy with Neurosurgery from his herniated nucleus of his L5-S1 disk. He had such severe back pain he could not walk. He had just finished the diskectomy. He is feeling great. He has got no pain. The neurosurgeon said that he could possibly even go home later on today if he is feeling okay which will be great. I hope he could go home and he will not need any medications. His medications consist of pain meds. He does not have any pain at this time. PHYSICAL EXAMINATION: VITAL SIGNS: He has 98.4 temp, 96 pulse, 145/85 blood pressure, 18 respiratory rate and 99% O2 sat on 3 liters. HEENT: Head is atraumatic, normocephalic. HEART: Regular rate. LUNGS: Decreased breath sounds. ABDOMEN: Soft. EXTREMITIES: He can move them now without any pain. LABORATORY DATA: He had 10.8 white count, 14.6 hemoglobin, 230 platelets. Sodium 139, potassium 4.7, BUN 15, creatinine 0.8. GFR is greater than 60. Sugar is 104. Calcium is 9.2, total bili is 0.4. AST is 32, ALT is 25, alk phos is 70. Total protein 7.7. ASSESSMENT AND PLAN: He was seen by Neurology, pain management, and Neurosurgery. He is status post L5-S1 diskectomy from herniated disk and he might be able to go home later today. We will see if we can walk him later with physical therapy. I am hoping to discharge him today. Yoel Murillo DO
--- NOTE | 2018-08-23 08:16 | CON ---
DATE OF CONSULTATION: 08/20/2018 REASON FOR CONSULTATION: Severe right leg pain. HISTORY OF PRESENT ILLNESS: The patient is a 33-year-old gentleman, who states that 4 months ago he started to get pain in his right buttock. It has gotten progressively more severe. 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 He had an MRI done on 07/01, which showed a herniated disc at L5-S1 to the right side. He has been to the emergency room several times and recently as he states the pain is making him unable to ambulate and do his normal activities of daily living. If he coughs or sneezes, the pain is much more severe. He describes the pain is going down the back of the right leg, into the outside and bottom of his right foot. No left leg symptoms. No loss of bowel or bladder control. He denies any significant past medical history. He is just on some Naprosyn and Flexeril patches for this pain. ALLERGIES: HE IS NOT ALLERGIC TO MEDICINES HE KNOWS OF. PAST SURGICAL HISTORY: Significant for repair of an umbilical hernia when he was [age] years old. He is an occasional smoker and denies alcohol use or IV drug abuse. On examination, he just appears to be extremely uncomfortable. He is laying on his side in the position. He is having great difficulty just rolling onto his back to be recumbent. Left leg straight leg raising at about 45 degrees given some severe right-sided low back pain, right-sided straight leg raising about 20 degrees gives some severe pain shooting down the leg, as he describes it. He has a little decreased sensation to light touch over the lateral right ankle compared to left side. Otherwise, strength appears to be intact. I was unable to test gait or strength of his gastric soleus groups given the fact that he is essentially bedridden and in severe pain. Good distal pulses. He had an MRI, as mentioned done on 07/01, and then one done on the of this month. It shows worsening herniated disc to the right side at L5-S1, putting pressure on the right S1 root. They read a possibility of the foraminal lateral disc putting pressure on the 5 root, but he has no complaints referable to the 5 root. There appears to be a small bit of extrusion behind the S1 vertebral body as well. Nothing on the left side. He has some desiccation, but no loss of height at the 5 one disc, and again before this happened, he had no significant problems with his back. The rest of the disc appeared to be fine and are well hydrated. IMPRESSION: Impression is that of right S1 radiculopathy secondary to a large positive extruded herniated disc. At this point, it has been suggested to get an epidural just to try and help manage his pain, but I think given the size and worsening of the disc herniation, I think there is a very small chance that the epidural would offer him any significant relief. I will discuss with the patient the possibility of surgically doing a microdiskectomy, which would alleviate the pressure at 90% of the time, significantly help the leg pain, so that hopefully we can start getting him up and move him right away. I will speak to Dr. Almazan as well. Hopefully, we can get this scheduled and done fairly quickly if the patient agrees. Thank you for allowing me to participate in the care of your patient. Suraj Grant MD
--- NOTE | 2018-08-23 08:21 | OP ---
PROCEDURE DATE: 08/21/2018 PREOPERATIVE DIAGNOSIS: Large herniated disk, right L5-S1 with right S1 radiculopathy. POSTOPERATIVE DIAGNOSIS: Large herniated disk, right L5-S1 with right S1 radiculopathy. OPERATION: Hemilaminotomy with excision of herniated disk, right L5-S1. SURGEON: Suraj Grant MD COMMUNITY ENGAGEMENT SPECIALIST: Kevin Albarado MD ANESTHESIA: General endotracheal tube intubation. DESCRIPTION OF PROCEDURE: The patient was brought to the operating room. General anesthesia was achieved. Intravenous antibiotics were administered. Spinal cord monitoring leads were placed throughout the patient's body. Real-time monitoring was done by auto emissions technician in the room. Remote monitoring was done by a physician as well. Sequential compression boots were placed each of the patient's legs. The patient was then gently transferred onto the operating room table, placed prone on a Ulisses frame keeping his abdomen free from pressure anteriorly. Care was taken to protect the elbows and knees for pressure points. A sterile drape was used to seal off the patient's perineal region from the operative field, and his back was sterilely prepped and draped. Lidocaine 1% with epinephrine was used to infiltrate the site for the incision. The incision was then made sharply in the midline. This was taken out subcutaneous tissue using sharp and blunt dissection. Hemostasis was achieved using electrocautery. The fascia was divided and stripped laterally off the spinous process and lamina to the right side. A Jeniffer retractor was placed around the facet joint to hold the tissues back. A fluoroscopic view was taken which confirmed we were at the L5-S1 level. Hemilaminotomy was carried out using Kerrison rongeurs. The operating microscope was then brought into the field. The rest of decompression was done under microscopic visualization. Laminotomy was widened and we could visualize the S1 root. Hemostasis was achieved with bipolar cautery. The thecal sac and S1 root were gently retracted and extremely large contained herniated disk could be visualized. Thecal sac and root were under great deal of tension as they were retracted. The annulus was incised and disk material was immediately extruded. Pituitary rongeur and small curettes were used to remove the protruding disk material and any other loose fragments. The disk space was irrigated with antibiotic solution. Foraminotomies were carried out as well until we could easily pass a [place] tool along the ventral surface of the thecal sac, passed the midline as well as out the S1 canal. It also was easily passed out the L5 canal. The disk space was irrigated and bacitracin powder along with some thrombin-soaked pledgets of Gelfoam were placed in the disk space. Hemostasis again was achieved with bipolar cautery as well as thrombinated Gelfoam powder. The wound was then closed in layers with interrupted sutures of 0 Vicryl for the fascia and 2-0 Vicryl for the subcutaneous tissue after further irrigation. The skin was approximated with a running subcuticular suture of 3-0 Monocryl and sealed with Dermabond. Once that was dry, the patient was gently transferred back onto his bed in the supine position. He was awakened and extubated. He was taken to the recovery room in stable condition, having tolerated the procedure well. Estimated blood loss was 30 mL. He received 400 mL of crystalloids during the operation. He was actively moving all extremities going to the recovery room, and there were no permanent electrophysiologic abnormalities noted at the completion of the case. Suraj Grant MD
--- NOTE | 2018-08-23 15:33 | RAD ---
Date of service: 08/21/2018 PROCEDURE: Fluoroscopy over 1 hr HISTORY: LUMBAR DISCECTOMY L5-S1 COMPARISON: TECHNIQUE: 6.9 sec of fluoro time. Cumulative dose 2.66 mGy. Two images were submitted FINDINGS: The study shows a needle marker in the L5-S1 disc. There is a retractor at this level. IMPRESSION: As above
== END 2018-08-21 14:12 | disposition home or self-care (01) | DRG 520 ==
LOC: ED 04:54 → ERH 07:19 → 5RNO 09:04 → OBSVTOIN 08-20 09:39
PROVIDERS: ADMIT Family Medicine; ATTEND Family Medicine
PROC: 0ST40ZZ Resection of Lumbosacral Disc, Open Approach (ICD-10-PCS; principal; 2018-08-21 08:00)
DX: M51.17 Intervertebral disc disorders with radiculopathy, lumbosacral region (principal); M48.07 Spinal stenosis, lumbosacral region; M46.90 Unspecified inflammatory spondylopathy, site unspecified; F17.210 Nicotine dependence, cigarettes, uncomplicated